=== PATIENT | male | born 2000 | race Caucasian/White ===

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

== ENCOUNTER → 2021-06-22 | Outpatient (REF) | LOC: M LABSMTC 12:38 | PROVIDERS: ATTEND Pediatrics | DX: Z11.52 Encounter for screening for COVID-19 (principal); Z20.822 Contact with and (suspected) exposure to COVID-19 ==

== ENCOUNTER 2022-03-14 13:57 | Emergency (ER) | payer OTHER, SELFPAY ==
[~2022-03-14] VITALS: Ht 188 cm; Wt 124.8 kg
[2022-03-14] MEDS ORDERED: ACET-683 PO (14:05)
[2022-03-14] MEDS ORDERED: IBUP200C29 PO (14:05)
[2022-03-14 15:37] LABS: RSV AMPLIFICATION NEGATIVE (NEGATIVE)
[2022-03-14] MEDS ORDERED: AUGMENTIN 875 MG TAB PO ONE (18:10)
[2022-03-14] MEDS ORDERED: KETOROLAC 60MG 2ML VIAL IM ONE (18:10)
[2022-03-14] MEDS ORDERED: LIDOCAINE VISCOUS 2% SOLN 15ML UDC SS ONE (18:10)
[2022-03-14] MEDS ORDERED: NAPR-837 PO (18:14)
[2022-03-14] MEDS ORDERED: LIDO2SOL17 PO (18:14)
[2022-03-14] MEDS ORDERED: AMOX875T2 PO (18:14)
[2022-03-14 18:28] VITALS: BP 143/78
== END 2022-03-14 18:41 | disposition home or self-care (01) ==
LOC: M ED 13:57
DX: H66.93 Otitis media, unspecified, bilateral (principal); R07.0 Pain in throat; F17.200 Nicotine dependence, unspecified, uncomplicated
CPT/HCPCS: 87631; 87880; 96372; 99283; J1885

== ENCOUNTER → 2024-05-08 | Outpatient (REF) | payer OTHER ==
[~2024-05-08] MED LIST: ACET-683 PO; AMOX875T2 PO; IBUP200C29 PO; LIDO15SO8 PO; NAPR-837 PO
== END ==
LOC: M LAB REF 16:11
PROVIDERS: ATTEND Physician Assistant
DX: B34.9 Viral infection, unspecified (principal)